=== PATIENT | male | born 1955 | race Two or more races ===

== ENCOUNTER 2024-09-23 06:47 | Emergency (ER) | payer OTHER ==
[~2024-09-23] VITALS: Ht 162.6 cm; Wt 81.2 kg
[2024-09-23] MEDS ORDERED: RAMIPRIL5 MG PO (07:19)
[2024-09-23] MEDS ORDERED: SIMVASTATIN10 MG PO (07:20)
[2024-09-23 10:04] LABS: BASO % 0.4 % (0.1-1.2); EOS # 0.09 (0.04-0.54); EOS % 0.9 % (0.7-7.0); LYMPH # 1.56 (1.18-3.74); MEAN CORPUSCULAR HEMOGLOBIN 31.7 pg (25.6-32.2); MONO # 0.69 (0.24-0.82); MONO % 6.6 % (4.7-12.5); NEUT # 7.99 (1.56-6.13); NEUT % 76.7 % (34.0-71.1); PLATELET COUNT 198 K/uL (163-369); RED BLOOD COUNT 5.05 M/uL (4.63-6.08); RED CELL DISTRIBUTION WIDTH 13.1 % (11.6-14.4)
[2024-09-23 11:25] LABS: COVID-19 AG NEGATIVE (NEGATIVE)
== END 2024-09-23 12:14 | disposition home or self-care (01) ==
LOC: ER 07:44
PROVIDERS: General Practice
DX: B34.9 Viral infection, unspecified (principal); R05.9 Cough, unspecified; Z20.822 Contact with and (suspected) exposure to COVID-19; I10 Essential (primary) hypertension